=== PATIENT | female | born 1990 | race American Indian/Alaskan Native ===

== ENCOUNTER 2019-02-09 06:12 | Day surgery (SDC) | payer MEDICAID ==
[2019-02-09] MEDS ORDERED: NACL BACTERIOSTATIC INFILTRATI ONE (06:37)
--- NOTE | 2019-02-09 07:07 | History and Physical Report ---
History of Present Illness Date of examination: 02/09/19 Chief complaint: Missed History of present illness: Pt is a 28 year old -[place] female who presents for surgical mamangement of missed at 8 wks. Past History Past Medical History: hematologic disorders (Anemia ) Past Surgical History: no surgical history PAN PUSHER History: chlamydia (remote ), trichomonas (remote ) Family/Genetic History: none Social history: no significant social history - Obstetrical History : 1 Medications and Allergies Allergies Allergy/AdvReac Type Severity Reaction Status Date / Time coconut Allergy Anaphylaxis Verified 02/03/19 12:25 Penicillins Allergy Anaphylaxis Verified 02/03/19 12:25 wool Allergy Hives Verified 02/03/19 12:25 peanut butter Allergy Anaphylaxis Uncoded 02/03/19 12:25 Home Medications Medication Instructions Recorded Confirmed Last Taken Type No Known Home Medications [No 02/03/19 02/03/19 Unknown History Reported Home Medications] Active Meds: Active Medications Lactated Ringer's (Lactated Ringers) 1,000 mls @ 100 mls/hr IV DIRECT PRINCESS Doxycycline Hyclate 100 mg/ (Sodium Chloride) 250 mls @ 250 mls/hr IV ONCE ONE; Protocol Stop: 02/09/19 08:00 Methylergonovine Maleate (Methergine) 0.2 mg IM ONCE ONE Stop: 02/09/19 07:02 Misoprostol (Cytotec) 800 mcg NH ONCE ONE Stop: 02/09/19 07:01 Review of Systems All systems: negative - Physical Exam Breasts: Positive: deferred Cardiovascular: Regular rate Lungs: Positive: Clear to auscultation Abdomen: Positive: soft Extremities: Positive: normal Results All other labs normal. Assessment and Plan A: Missed at 8 wks P: Proceed with suction dilation and curettage and other indicated procedures.
[2019-02-09 07:15] LABS: Basophils # (Auto) 0.1 K/mm3 (0.0-0.1); Basophils % (Auto) 1.2 % (0.0-1.8); Eosinophils # (Auto) 0.1 K/mm3 (0.0-0.4); Eosinophils % (Auto) 0.9 % (0.0-4.3); Hematocrit 39.2 % (30.3-42.9); Hemoglobin 13.5 gm/dl (10.1-14.3); Lymphocytes # (Auto) 2.5 K/mm3 (1.2-5.4); Lymphocytes % (Auto) 33.8 % (13.4-35.0); Mean Corpuscular HGB Conc 35 % (30-34); Mean Corpuscular Volume 95 fl (79-97); Monocytes # (Auto) 0.6 K/mm3 (0.0-0.8); Platelet Count 277 K/mm3 (140-440); Red Blood Count 4.13 M/mm3 (3.65-5.03); Red Cell Distribution Width 13.8 % (13.2-15.2)
[2019-02-09] MEDS ORDERED: SUBLIMAZE ONE (07:23)
[2019-02-09] MEDS ORDERED: SUBLIMAZE IV PRN (07:24)
[2019-02-09] MEDS ORDERED: ZOFRAN IV PRN (07:24)
[2019-02-09] MEDS ORDERED: DIPRIVAN 10 MG/ML IV ONE (07:24)
--- NOTE | 2019-02-09 07:26 | Anesthesia Day of Surgery ---
Anesthesia Day of Surgery - Day of Surgery Patient Examined: Yes Patient H&P Reviewed: Yes Patient is NPO: Yes
--- NOTE | 2019-02-09 07:28 | Anesthesia Consultation ---
Anesthesia Consult and Med Hx Date of service: 02/09/19 - Airway Anesthetic Teeth Evaluation: Good ROM Head & Neck: Adequate Mental/Hyoid Distance: Adequate Mallampati Class: Class I Intubation Access Assessment: Good - Pre-Operative Health Status ASA Pre-Surgery Classification: ASA2 Proposed Anesthetic Plan: General - Central Nervous System Hx Psychiatric Problems: No - Hematic Hx Anemia: Yes (Not being treated) Hx Sickle Cell Disease: No - Other Systems Hx Cancer: No - Additional Comments Anesthesia Medical History Comments: 13weeks gest
[2019-02-09] MEDS ORDERED: METHERGINE IM NR (07:30)
[2019-02-09] MEDS ORDERED: XYLOCAINE MPF 2% ONE (07:30)
[2019-02-09] MEDS ORDERED: CYTOTEC PR NR (07:30)
[2019-02-09] MEDS ORDERED: LACTATED RINGERS 1,000 ML IV SCH (08:00)
[2019-02-09] MEDS ORDERED: DOXYCYCLINE HYCLATE 100 MG in NACL 0.9% 250ML 250 ML IV ONE (08:00)
[2019-02-09] MEDS ORDERED: VERSED IV NR (08:00)
[2019-02-09] MEDS ORDERED: DECADRON ONE (08:07)
[2019-02-09] MEDS ORDERED: ZOFRAN ONE (08:07)
[2019-02-09] MEDS ORDERED: NACL 0.9% IR ONE (08:12)
--- NOTE | 2019-02-09 08:39 | Operative Report ---
Operative Report Operative Report: Date of Procedure: February 09, 2019 Preoperative Diagnosis: 1) Missed at 8 wks Postoperative Diagnosis: Same Procedure: Suction Dilation and Curettage Surgeon: Shanae Mancuso MD Anesthesia: General with LMA Findings: 1) Small anteverted uterus with closed cervical os EBL: 200 mL Specimen: Products of conception to pathology Drains: None Medications: Methegine 0.2 mg IM and Misoprostol 800 mcg per rectum Complications: None. Counts correct x 3 Disposition: Stable to PACU Indication for Procedure: Pt is a 28 year old -[place] primigravida who presents for surgical management of missed at 8 wks. Operation in detail: After the risks, benefits, alternatives, complications of the procedure were explained to the patient and her mother, she gave informed consent for the procedure. She was subsequently taken to the operating room with her IV noted to be running well and placed in the dorsal supine position. SCDs are noted to be in place and functioning. Her IV was noted to be running well. General anesthesia was then induced without difficulty. The patient was then placed in the dorsal lithotomy position and prepped and draped in normal sterile fashion. A timeout was performed. An exam under anesthesia revealed a small mobile anteverted uterus. A rubber catheter was used to drain the bladder of clear but concentrated urine. A bivalve speculum was placed into the vagina for adequate visualization of the cervix. A single-tooth tenaculum was placed on the anterior lip of the cervix. Hernadez dilators were used to a #29 to dilate the cervix. A size 10 rigid cannula was then used to perform a suction curettage of the endometrial cavity. The products of conception were sent to pathology. A sharp curettage was performed until all quadrants gritty 4. The patient then received an injection of Methergine 0.2 mg IM for hemostasis. Hemostasis was noted. At this time all instruments were removed from the vagina atraumatically. She then received Misoprostol 800 g per rectum. At this time the procedure was ended. The patient was placed the dorsal supine position and extubated without difficulty. She was subsequently taken to the PACU in stable condition. The patient tolerated the procedure well. All instrument and lap counts were correct 2.
[2019-02-09] MEDS ORDERED: CYTOTEC PR ONE (08:40)
[2019-02-09] MEDS ORDERED: METHERGINE IM ONE (08:40)
--- NOTE | 2019-02-09 08:40 | Short Stay Summary ---
Short Stay Documentation Date of service: 02/09/19 - History Social history: no significant social history - Allergies and Medications Current Medications: Allergies coconut Allergy (Verified 02/03/19 12:25) Anaphylaxis Penicillins Allergy (Verified 02/03/19 12:25) Anaphylaxis wool Allergy (Verified 02/03/19 12:25) Hives peanut butter Allergy (Uncoded 02/03/19 12:25) Anaphylaxis Home Medications Medication Instructions Recorded Confirmed Last Taken Type No Known Home Medications [No 02/03/19 02/03/19 Unknown History Reported Home Medications] Active Medications Fentanyl (Sublimaze) 50 mcg IV Q5MIN PRN PRN Reason: Pain , Severe (7-10) Stop: 02/09/19 20:00 Lactated Ringer's (Lactated Ringers) 1,000 mls @ 100 mls/hr IV DIRECT PRINCESS Last Admin: 02/09/19 07:27 Dose: 100 mls/hr Documented by: Doxycycline Hyclate 100 mg/ (Sodium Chloride) 250 mls @ 250 mls/hr IV ONCE ONE; Protocol Stop: 02/09/19 08:59 Methylergonovine Maleate (Methergine) 0.2 mg IM ONCE NR Stop: 02/09/19 17:00 Midazolam HCl (Versed) 2 mg IV PREOP NR Stop: 02/09/19 23:59 Last Admin: 02/09/19 07:28 Dose: 2 mg Documented by: Misoprostol (Cytotec) 800 mcg UT ONCE NR Stop: 02/09/19 18:00 Ondansetron HCl (Zofran) 4 mg IV ONCE PRN PRN Reason: Nausea And Vomiting Stop: 02/09/19 20:00 - Physical exam Breasts: deferred - Brief post op/procedure progress note Date of procedure: 02/09/19 Pre-op diagnosis: Missed at 8 wks Post-op diagnosis: same Procedure: Suction dilation and curettage Anesthesia: GETA (with LMA ) Findings: 1) Small anteverted uterus with closed cervical os Surgeon: DIANA SEBASTIAN Estimated blood loss: other (200 mL) Pathology: list (products of conception) Specimen disposition: to lab Condition: stable - Hospital course Hospital course: The patient underwent suction dilation and curettage which she tolerated well. She was observed in the PACU until she met discharge criteria. She will follow up in the office in 2 wks. - Disposition Condition at discharge: Stable Disposition: DC-01 TO HOME OR SELFCARE - Discharge Diagnoses (1) Missed Status: Acute Short Stay Discharge Plan Activity: other (Nothing in vagina, no swimming or tub baths for four weeks ) Weight Bearing Status: Full Weight Bearing Diet: regular Follow up with: PCP,FOLLOW UP, [Primary Care Provider] - 7 Days DIANA SEBASTIAN MD [Staff Physician] - 02/23/19 (Please call the office to schedule postop appt ) Forms: Work/School Release Form Prescriptions: Ibuprofen [Motrin] 800 mg PO Q8HR PRN #30 tablet PRN Reason: Pain , Severe (7-10) oxyCODONE /ACETAMINOPHEN [Percocet 5/325] 1 tab PO Q6HR PRN #15 tablet PRN Reason: Pain
[2019-02-09 09:39] VITALS: BP 121/81
--- NOTE | 2019-02-09 19:08 | Post Anesthesia Evaluation ---
- Post Anesthesia Evaluation Patient Participated: Yes Airway Patent: Yes Stable Respiratory Function: Yes Nausea/Vomiting: No Temp > 96.8F: Yes Pain Manageable: Yes Adequeate Hydration: Yes Anesthesia Complications: No Block Receding Appropriately: Not Applicable Patient on Ventilator: No
== END 2019-02-09 06:13 | disposition home or self-care (01) ==
LOC: OR 06:12
PROVIDERS: ATTEND Obstetrics & Gynecology
DX: O02.1 Missed abortion (principal); Z3A.08 8 weeks gestation of pregnancy; J40 Bronchitis, not specified as acute or chronic; Z79.899 Other long term (current) drug therapy; Z88.0 Allergy status to penicillin; Z91.010 Allergy to peanuts; Z88.8 Allergy status to other drugs, medicaments and biological substances; Z86.2 Personal history of diseases of the blood and blood-forming organs and certain disorders involving the immune mechanism
CPT/HCPCS: 36415; 59820; 85025; 86850; 86900; 86901; 88305; J1100; J2210; J2250; J2405; J2704; J3010; J7050; J7120